=== PATIENT | male | born 1980 | race Caucasian/White ===

== ENCOUNTER 2018-05-19 10:26 | Outpatient (CLI) | payer SELFPAY ==
[2018-05-19 12:39] LABS: ALT 22 U/L (12-78); AST 21 U/L (15-37); Albumin 4.1 g/dL (3.4-5.0); Alkaline Phosphatase 78 U/L (46-116); BUN 19 mg/dL (7-18); Bilirubin, Total 0.6 mg/dL (0.2-1.0); CREATININE 1.16 mg/dL (0.70-1.30); Calcium 8.8 mg/dL (8.5-10.1); Chloride 102 mmol/L (98-107); Glucose 96 mg/dL (70-100); Sodium 139 mmol/L (136-145); Total Protein 7.2 g/dL (6.4-8.2)
== END 2018-05-19 10:46 ==
PROVIDERS: Family Medicine Adult Medicine; PCP General Practice; Visit Provider General Practice
DX: R79.0 Abnormal level of blood mineral (principal)
CPT/HCPCS: 36415; 80053

== ENCOUNTER 2023-04-22 10:51 | Emergency (ER) | payer OTHER, SELFPAY ==
[2023-04-22 11:03] VITALS: BP 130/80; PULSE 91; RESP 16; TEMP 36.8; O2SAT 100
--- NOTE | 2023-04-22 11:03 | ED.GENADUL_ITS ---
HPI General Date/Time Provider Initiated Documentation: 04/22/23 11:01 . HPI Narrative: MDM This is an overall very well-appearing normothermic and not tachycardic 43-year-old male 4 days postop with complaints of transient visual changes. Objectively patient has no afferent pupillary defect nor any proptosis and no trauma to suggest retrobulbar hematoma. No eye pain to suggest acute closed angle glaucoma. Neurologically intact so my suspicion for CVA is exceedingly low so I do not feel that the patient is a tPA candidate nor does he require an emergent MRI. No nuchal rigidity to suggest meningitis so I do not feel that he requires a lumbar puncture. No tonic-clonic activity so I do not feel that the patient requires an EEG. No unilateral visual symptoms to suggest retinal detachment so I did not complete an ocular ultrasound. In the absence of trauma to the eye I did not complete a slit-lamp exam. There is family history significant for malignancy in the patient's sister and given his reported transient abnormal pupil there is the possibility of a mass for which patient will recieve CT scan. Given concern for aneurysmal impingement on optic nerve will also obtain CT angiogram. No pain out of proportion to suggest necrotizing soft tissue infection. In the absence of any trauma I was not concerned globe rupture so I did not complete a fluorescein exam. Concerning his hernia he reports that his pain is improving and that he is only taking acetaminophen ibuprofen. He has not been vomiting and though he has not had a bowel movement he is passing flatus so I do not feel that he is having a small bowel obstruction. Furthermore he does not complain of abdominal pain. Given the transdermal scopolamine patch with subsequent unilateral vision symptoms my suspicion that the scopolamine caused his transiently dilated pupil is low given transdermal absorption prior to transient, and now passed, systemic effects. 1:23 PM Basic metabolic panel normal. CBC with no anemia no thrombocytopenia no leukocytosis. CT head read as reassuring with normal variant of prominent cisterna magnum. No signs of aneurysms. No masses. I met with the patient and explained his reassuring results. I did advise that he follow-up with his primary care provider as he may benefit from more sensitive test such as an MRI. I also advised that the patient follow-up with his adoption social worker given his blurry vision to ensure that his prescriptions were adequate. I advised ED return he developed any focal areas of weakness nausea vomiting or had any other concerns. He understood his return indications and was discharged with empiric trial of expectant outpatient management. Chronic conditions affecting the care of the patient: N/A History obtained from an outside historian: N/A External record review: N/A Medications: N/A Social determinants of health affecting disposition: N/A Management discussed with: N/A Treatment/interventions considered: N/A Response to therapies provided: N/A HPI This is a 43-year-old male arrived to the emergency department via private vehicle in setting of concern over his vision. Patient reports that he has had blurry vision for the past 3 days since a left inguinal hernia repair as an outpatient 4 days ago at [place]. He reports that he has had no weakness. His sister reportedly had a brain malignancy. Patient does not wear contacts but does wear corrective lenses. He is not having any significant abdominal pain. Post operatively he is only taking acetaminophen and ibuprofen. He has not taken any oxycodone in 3 days. He noticed that his left eye was more dilated than his right eye. He transiently had a left neck scopolamine patch which he removed prior to washing the area. He has not taken any falls. He denies any trauma to his eyes. He has not had any weakness. Exam General: Well-appearing in no acute distress speaking in complete sentences. Head: Normocephalic, atraumatic. Eye:[Pupils equal, round reactive to light.] Extraocular eye movements intact. No conjunctival injection. No scleral icterus. Lids lashes normal on inspection. No proptosis. No signs of trauma to the eye. 20/25 left, right, and bilaterally per nursing Ear, nose, mouth, throat: Grossly normal inspection. Normal voice, handling secretions normally. Neck: Trachea midline. Cardiovascular: Well-perfused distal extremities. Regular rate and rhythm. Regular rate and rhythm. Respiratory: Nonlabored respiration. Clear lungs bilaterally. Clear lungs bilaterally Gastrointestinal: Nondistended abdomen. Musculoskeletal: No edema. Moving all 4 extremities spontaneously. Skin: Normal for age and race, grossly normal temperature and turgor. No acute rash. Neurologic: Alert and appropriate, no apparent acute deficits. GCS 15. Moving all 4 extremities spontaneously. Cranial nerves II through XII intact grossly. No pronator drift. No facial asymmetry. 5 out of 5 bilateral upper and lower extremity strength. Psychiatric: Mood and manner are appropriate. Grooming and personal hygiene are appropriate. Related Data Allergies Allergy/AdvReac Type Severity Reaction Status Date / Time amoxicillin [Amoxicillin] Allergy Mild Skin Rash Unverified 04/29/15 23:28 Medical Decision Making Quality:SDOH Health Related Social Needs: No Data to Display PFSH All Active Problems (Updated 04/22/23 @ 13:27 by Wilner Perez MD) Blurred vision, bilateral (Acute) Social History Smoking/Tobacco Use Status: Never Smoking risk assessment performed?: Yes Drug use: Never Discharge Plan Disposition Patient Disposition: Home Discharge Details Clinical Impression: Blurred vision, bilateral Primary Care Provider: Marianela Mccullough ED Provider: Wilner Perez Home Meds and New Rx's Prescriptions: Discontinued erythromycin [Ilotycin] 1 GM ointment 1 gm Ophthalmic TID 5 Days 0RF Rx Instructions: DISPENSE QUANTITY SUFFICIENT FOR 5 DAYS Discharge Instructions Additional Instructions: You were seen in the emergency department for for your blurry vision. Your CAT scan showed no signs of any large vessel occlusions or significant narrow areas in your brain. There were no aneurysms. There was no masses. You did have a prominent cisterna magnum which is the area that collects cerebrospinal fluid, as we discussed. Radiology reported that this was a normal variant. She discussed please follow-up with your adoption social worker. Please also follow-up with your primary care provider. Discharge Data Discharge Date/Time-TO BE ENTERED AT DEPARTURE: 04/22/23 13:40
--- NOTE | 2023-04-22 11:15 | DI.CT_ITS ---
Exam(s) CT BRAIN CTA EXAM: CT BRAIN CTA CLINICAL HISTORY: Blurry vision family history of brain malignancy. TECHNIQUE: Imaging Protocol: Axial CT angiography was performed with multi-slice acquisition and mu lti-planar and/or 3D reconstructions. CONTRAST MATERIAL: Intravenous: Omnipaque 350 contrast volume:100 mL COMPARISON: No exams were available for comparison FINDINGS: CT Head W/O: Ventricles and Extra axial spaces: Normal in size and morphology for the patient's age. There is a pr ominent cisterna magna which is a normal variant. Hemorrhage: None. Cerebral parenchyma: Normal. There is no evidence of a pituitary mass. The optic chiasm is unremarka ble. The infundibulum is midline. No suprasellar mass is seen. Midline shift: None. Brainstem/Cerebellum: Normal. Calvarium: Normal. Visualized Paranasal sinuses/Mastoids: Clear. Soft Tissues: Unremarkable. Enhancement: Unremarkable. CTA Brain W: Internal Carotid Arteries: No aneurysm, occlusion or significant stenosis. Anterior Cerebral Arteries: Right: No aneurysm, occlusion or significant stenosis. Left: No aneurysm, occlusion or significant stenosis. Middle Cerebral Arteries: Right: No aneurysm, occlusion or significant stenosis. Left: No aneurysm, occlusion or significant stenosis. Posterior cerebral Arteries: Right: No aneurysm, occlusion or significant stenosis. Left: No aneurysm, occlusion or significant stenosis. Vertebral Arteries: Right: No aneurysm, occlusion or significant stenosis. Left: No aneurysm, occlusion or significant stenosis. Basilar Artery: No aneurysm, occlusion or significant stenosis. IMPRESSION: 1. No evidence of large vessel occlusion or significant stenosis on the CT angiography of the head. 2. No acute intracranial process. 3. No intracranial enhancing mass. RADIATION DOSE DELIVERED: 1,887.2mGy.cm Total DLP DATA REPOSITORY: All CT scans at this facility are submitted to the National Radiology Data Registry (NRDR) Dose Index Registry (DIR) with the [employer] ([employer]). RADIATION OPTIMIZATION: All CT scans at this facility use at least one of these dose optimization te chniques: automated exposure control; mA and/or kV adjustment per patient size (includes targeted exa ms where dose is matched to clinical indication); or iterative reconstruction.
[2023-04-22 11:49] LABS: Abs Immature Grans 0.03 10^3/uL (0.0-0.06); Absolute Basophil Count 0.04 10^3/uL (0.0-0.2); Absolute Eosinophil Count 0.05 10^3/uL (0.0-0.7); Absolute Lymphocyte Count 1.15 10^3/uL (1.2-3.4); Absolute Monocyte Count 0.57 10^3/uL (0.1-0.8); Absolute Neutrophil Count 8.29 10^3/uL (1.2-6.7); Basophils % 0.4; Eosinophils % 0.5; HGB 15.6 g/dL (13.5-17.5); Immature Grans % 0.3; Lymphocytes % 11.4; MCH 29.8 pg (27.0-33.0); MCHC 33.2 % (32.0-36.0); MCV 90 fL (80-95); MPV 10.1 fL (8.0-11.0); Monocytes % 5.6; Neutrophils % 81.8; Platelet Count 237 10^3/uL (130-400); RBC 5.23 10^6/uL (4.36-5.78); RDW 12.7 % (11.8-14.1); WBC 10.13 10^3/uL (4.4-10.8)
[2023-04-22 12:02] LABS: Anion Gap 8.1 mmol/L (3-11); BUN 11 mg/dL (7-18); CO2 31.9 mmol/L (21.0-32.0); CREATININE 1.1 mg/dL (0.70-1.30); Calcium 9.8 mg/dL (8.5-10.1); Chloride 102 mmol/L (98-107); Estimated GFR 86.49 (mL/min/1.73m2); Glucose 88 mg/dL (74-106); Potassium 4.1 mmol/L (3.5-5.1); Sodium 142 mmol/L (136-145)
[2023-04-22] MEDS: Normal Saline Flush 10 ML SYR IVP (12:28)
[2023-04-22] MEDS: Normal Saline - Diluent 50 ML VIAL IV (12:31)
[2023-04-22] MEDS: Omnipaque 350 MG/ML 500 ML BTL-Imaging package IJ (12:39)
[2023-04-22 13:32] VITALS: BP 102/66; PULSE 88; RESP 16; O2SAT 99
== END 2023-04-22 13:40 | disposition home or self-care (01) ==
PROVIDERS: Emergency Provider Emergency Medicine; PCP General Practice
DX: H53.8 Other visual disturbances (principal)
CPT/HCPCS: 36415; 70496; 80048; 99285; 85025; 99284